=== PATIENT | female | born 1980 | race Two or more races ===

== ENCOUNTER 2016-05-03 23:32 | Emergency (ER) | payer SELFPAY ==
[~2016-05-03] VITALS: Ht 157.5 cm; Wt 99.8 kg
[2016-05-04] MEDS ORDERED: METOCLOPRAMIDE HCL 10 MG/2 ML VIAL IV ONE
[2016-05-04] MEDS ORDERED: IV NS 0.9% 1,000 ML BAG IV ONE
[2016-05-04] MEDS ORDERED: diphenhydrAMINE HCL 50 MG/ML VIAL IV ONE
[2016-05-04] MEDS ORDERED: diphenhydrAMINE HCL 50 MG/ML VIAL ONE (00:09)
[2016-05-04] MEDS ORDERED: METOCLOPRAMIDE HCL 10 MG/2 ML VIAL ONE (00:09)
[2016-05-04] MEDS ORDERED: IV SET PRIMARY 1 EA INFUS.SET MC ONE (00:09)
[2016-05-04] MEDS ORDERED: IV NS 0.9% 1,000 ML ONE (00:10)
[2016-05-04 00:27] LABS: BASOPHILS % (AUTO) 0.2 % (0.0-2.0); DIFF TOTAL % 100 %; HEMATOCRIT 42 % (33-45); HEMOGLOBIN 14.2 g/dL (11.5-14.8); LYMPHOCYTES # (AUTO) 0.8 /CMM (0.8-4.8); MEAN CORPUSCULAR HEMOGLOBIN 29 PG (26.0-33.0); MEAN CORPUSCULAR HGB CONC 34 g/dl (31.0-36.0); MEAN CORPUSCULAR VOLUME 84 fL (82-100); MONOCYTES # (AUTO) 0.1 /CMM (0.1-1.30); MONOCYTES % (AUTO) 1.1 % (2.0-12.0); NEUTROPHILS # (AUTO) 10.6 /CMM (1.8-8.9); NEUTROPHILS % (AUTO) 91.7 % (43.0-81.0); PLATELET COUNT (AUTO) 326 /CMM (150-450); RED BLOOD CELL COUNT(AUTO) 4.99 MIL/uL (4.0-5.2); WHITE BLOOD COUNT (AUTO) 11.6 K/uL (4.3-11.0)
[2016-05-04 00:39] LABS: CALCIUM, SERUM 8.6 mg/dL (8.5-10.1); CREATININE 0.9 mg/dL (0.6-1.3); POTASSIUM 3.6 mmol/L (3.5-5.1)
[2016-05-04 02:47] VITALS: BP 148/82
== END 2016-05-04 02:48 | disposition home or self-care (01) ==
LOC: ER 23:40
DX: G44.209 Tension-type headache, unspecified, not intractable (principal)
CPT/HCPCS: 36415; 70450; 80048; 84703; 85025; 96361; 96374; 96375; 99285; A4606; J1200; J2765; J7030; Z7610

== ENCOUNTER 2020-04-17 15:28 | Emergency (ER) | payer MEDICAID ==
[~2020-04-17] VITALS: Ht 165.1 cm; Wt 80.3 kg
[2020-04-17 15:53] VITALS: BP 169/100
--- NOTE | 2020-04-17 16:07 | NUR ---
dr mckeon at [facility] for eval.
--- NOTE | 2020-04-17 16:18 | NUR ---
pt to radiology for L sided rib xray.
== END 2020-04-17 17:10 | disposition home or self-care (01) ==
LOC: ER 15:34
DX: S20.212A Contusion of left front wall of thorax, initial encounter (principal); W01.0XXA Fall on same level from slipping, tripping and stumbling without subsequent striking against object, initial encounter; Y93.89 Activity, other specified; Y92.89 Other specified places as the place of occurrence of the external cause; Y99.0 Civilian activity done for income or pay
CPT/HCPCS: 71100-TC

== ENCOUNTER 2020-12-09 20:54 | Inpatient (IN) | payer MEDICAID ==
[~2020-12-09] VITALS: Ht 165.1 cm; Wt 82.3 kg
--- NOTE | 2020-12-09 21:00 | NUR ---
pt bibself c/o midsternal chest pain x today, dysuria and urgency x 8 months. pt aaox4 breathing evenly and unlabored. Upon assessment, pt is warm to the touch. pt attached to monitor and pox. MD at bedside for eval. Left ac 20g initiated and blood drawn and sent to the lab. Pt given call light within reach
[2020-12-09 21:25] LABS: BILIRUBIN,URINE Negative (NEGATIVE); COLOR,URINE YELLOW (YELLOW); LEUKOCYTE ESTERASE ,URINE Negative (NEGATIVE); NITRITE, URINE Negative (NEGATIVE); PH,URINE 6.5 (5.0-8.0); PROTEIN,URINE Negative (NEGATIVE); UGLUCOSE >=1000 mg/dL (NEGATIVE); UROBILINOGEN,URINE 0.2 EU/dL (0.2)
[2020-12-09] MEDS ORDERED: VANCOMYCIN 1 GM in IV D5W 250 ML IV ONE (21:30)
[2020-12-09] MEDS ORDERED: CEFEPIME 1 GM in IV D5W 50 ML IV ONE (21:30)
[2020-12-09] MEDS ORDERED: ACETAMINOPHEN 325 MG TABLET PO ONE (21:30)
[2020-12-09] MEDS ORDERED: IV NS 0.9% 1,000 ML BAG IV ONE (21:30)
[2020-12-09] MEDS ORDERED: CEFEPIME 1 GM VIAL ONE (21:32)
[2020-12-09] MEDS ORDERED: VANCOMYCIN 1 GM VIAL ONE (21:33)
--- NOTE | 2020-12-09 21:42 | NUR ---
covid swab sent to lab
[2020-12-09 21:47] LABS: BACTERIA,URINE 1+ /HPF (None Seen); SQUAMOUS EPITHELIAL CELL,UR Few /HPF (None Seen)
--- NOTE | 2020-12-09 21:58 | NUR ---
xray at bedside
[2020-12-09 22:28] LABS: ALBUMIN 3.5 g/dL (3.4-5.0); ALKALINE PHOSPHATASE 124 U/L (46-116); BILIRUBIN,DIRECT 0.1 mg/dL (0.0-0.2); BILIRUBIN,TOTAL 0.6 mg/dL (0.2-1.0); CALCIUM, SERUM 8.9 mg/dL (8.5-10.1); CARBON DIOXIDE 17 mmol/L (21-32); CHLORIDE 98 mmol/L (98-107); CREATININE 0.9 mg/dL (0.6-1.3); POTASSIUM 3.4 mmol/L (3.5-5.1); TOTAL PROTEIN, SERUM 7.9 g/dL (6.4-8.2); UREA NITROGEN, BLOOD 17 mg/dL (7-18)
[2020-12-09 22:43] LABS: GLUCOSE 414 mg/dL (74-106)
--- NOTE | 2020-12-09 22:56 | NUR ---
rt at bedside
[2020-12-09] MEDS ORDERED: IV NS 0.9% 1,000 ML IV ONE ×2 (23:00)
[2020-12-09] MEDS ORDERED: POTASSIUM CHLORIDE 20 MEQ TAB.PRT.SR PO ONE ×2 (23:00→23:02)
[2020-12-09] MEDS ORDERED: Magnesium 1 GM/2 ML VIAL IV ONE (23:00)
[2020-12-09] MEDS ORDERED: Magnesium 1 GM/2 ML VIAL ONE (23:02)
[2020-12-09 23:04] LABS: ALANINE AMINOTRANSFERASE 41 U/L (12-78)
[2020-12-09] MEDS ORDERED: Magnesium 1GM/D5W 100ML PREMIX 100 ML IV ONE (23:05)
[2020-12-09 23:06] LABS: ASPARTATE AMINOTRANSFERASE 26 U/L (15-37); SODIUM SERUM 135 mmol/L (136-145)
[2020-12-09 23:15] LABS: ABG BASE EXCESS -1.9 mmol/L; ABG OXYGEN SATURATION 95.5 % (92.0-98.5); ABG PH 7.461 (7.350-7.450); ABG PO2 77.5 mmHg (75.0-100.0); AaDO2 36.3 mmHg; COHb 0.4 % (0.5-1.5); MetHb 0.4 % (0.0-1.5); O2Hb 94.7 % (94.0-97.0); SITE, ABG Left Radial; VENT MODE, BG ROOM AIR
--- NOTE | 2020-12-09 23:29 | NUR ---
lab at bedside
[2020-12-09 23:31] LABS: HEMATOCRIT 43 % (33-45); HEMOGLOBIN 15.8 g/dL (11.5-14.8); MEAN CORPUSCULAR HGB CONC 37 g/dl (31.0-36.0); MEAN CORPUSCULAR VOLUME 84 fL (82-100); NEUTROPHILS % (AUTO) 91.6 % (43.0-81.0); PLATELET COUNT (AUTO) 213 K/uL (150-450); RED BLOOD CELL COUNT(AUTO) 5.16 MIL/uL (4.0-5.2); WHITE BLOOD COUNT (AUTO) 11.7 K/uL (4.3-11.0)
[2020-12-09 23:32] LABS: BASOPHILS % (AUTO) 0.4 % (0.0-2.0); EOSINOPHILS % (AUTO) 0.2 % (0.0-6.0); LYMPHOCYTES % (AUTO) 6.6 % (20.0-44.0); MONOCYTES % (AUTO) 1.2 % (2.0-12.0)
--- NOTE | 2020-12-10 00:16 | NUR ---
paged Dr Baron per dr Burch's order
[2020-12-10] MEDS ORDERED: DEXTROSE 50%-WATER 50 ML DISP.SYRIN IV PRN (00:30)
[2020-12-10] MEDS ORDERED: MAGNESIUM HYDROXIDE 30 ML UDC PO PRN (00:30)
[2020-12-10] MEDS: AZITHROMYCIN 500 MG in IV D5W 250 ML IV SCH (00:30)
[2020-12-10] MEDS ORDERED: MAG HYDROX/AL HYDROX/SIMETH 30 ML UDC PO PRN (00:30)
[2020-12-10] MEDS ORDERED: ONDANSETRON HCL/PF 4 MG/2 ML VIAL IVP PRN (00:30)
[2020-12-10] MEDS ORDERED: ZOLPIDEM TARTRATE 5 MG TABLET PO PRN (00:30)
[2020-12-10] MEDS: CEFTRIAXONE 1 G in IV D5W 50 ML IV SCH (00:30)
[2020-12-10] MEDS ORDERED: Z GUARD REMEDY 2 OZ OINT TP PRN (00:30)
--- NOTE | 2020-12-10 00:40 | NUR ---
called house sup for tele bed
--- NOTE | 2020-12-10 01:15 | NUR ---
PT WILL BE GOING TO 304-2
--- NOTE | 2020-12-10 01:37 | NUR ---
gave report to rosy lu for malia
--- NOTE | 2020-12-10 02:00 | NUR ---
PT WAS TRANSFERRED TO 304 UNDER ACLS
[2020-12-10 02:10] VITALS: BP 135/79
--- NOTE | 2020-12-10 02:10 | NUR ---
NETBACKUP ADMINISTRATORBUSINESS UNIT CONTROLLER PATIENT BROUGHT BY ER AT THIS TIME [facility]. A/OX4. AMBULATORY. NO S/S OF APPARENT DISTRESS. DENIES PAIN AT THIS TIME. SKIN INTACT. TELE BOX IN PLACE READING SINUS TACHY. ID BAND IN PLACE. BELONGINGS DONE. V/S FOLLOWS: BP- 135/79, HR-110, RR-20, T- 98.0, 97% O2 SATURATION ON ROOM AIR. PT. IS 181.[address] AWAITING ORDERS AND WILL FOLLOW THROUGH THEM. WILL CONT. TO MONITOR PATIENT.
[2020-12-10] MEDS: IV NS 0.9% 1,000 ML IV PRN ×2 (02:27→14:35)
--- NOTE | 2020-12-10 02:30 | NUR ---
ms rn note faxed Maia order from ER of azithromycin. awaiting.
[2020-12-10] MEDS ORDERED: CEFTRIAXONE 1 G VIAL ONE (02:49)
[2020-12-10] MEDS ORDERED: AZITHROMYCIN 500 MG VIAL ONE (03:00)
[2020-12-10 03:13] VITALS: BP 135/79
--- NOTE | 2020-12-10 03:31 | NUR ---
ms rn note conjugated 500 mg of azithromycin vial in 250 D5W. administered at this time.
[2020-12-10] MEDS: BLOOD SUGAR DIAGNOSTIC 1 EACH STRIP IN SCH ×4 (06:22→22:41)
[2020-12-10] MEDS: INSULIN REGULAR, HUMAN 100 UNIT/ML 3 ML VIAL SQ PRN ×4 (06:38→22:44)
--- NOTE | 2020-12-10 06:40 | NUR ---
telephone station repairer notes patient blood sugar in the am is 335. given 8 units of regular insulin per sliding scale.
--- NOTE | 2020-12-10 06:43 | NUR ---
telephone station installer closing patient sitting in bed. a/ox4. patient has no apparent distress, tolerating room air. no c/o pain at this time. IV NS running @100ml/hr. patient ambulatory, able to make needs known. all needs attended, all sched meds administered. safety in place. will endorse care to morning shift rn for continuation of care.
[2020-12-10] MEDS: PANTOPRAZOLE 40 MG TABLET.DR PO SCH (07:38)
--- NOTE | 2020-12-10 07:43 | NUR ---
COTTAGE MASTER OPENING NOTES RECEIVED PATIENT IN BED, AWAKE, A/OX4. PATIENT ON ROOM AIR; BREATHING EVEN AND UNLABORED AT THIS TIME. TELE MONITOR WITH A CURRENT READING OF NSR 87 BPM. COMPLAINING OF LIGHT HEADACHE. IV ACCESS ON LAC G # 20 RUNNING NS @ 100 MLS/HR. SAFETY PRECAUTIONS IN PLACE; BED IN LOW POSITION AND LOCKED, RAILS UP X2, CALL LIGHT WITHIN REACH. WILL CONTINUE TO MONITOR PATIENT.
[2020-12-10 08:10] VITALS: BP 123/79
[2020-12-10 12:00] VITALS: BP 101/64
[2020-12-10] MEDS: ACETAMINOPHEN 325 MG TABLET PO PRN (16:17)
--- NOTE | 2020-12-10 16:19 | NUR ---
DAY CARE ATTENDANT NOTES PATIENT NOTED WITH SLIGHT FEVER OF 99.8. PRN TYLENOL ADMINISTERED.
[2020-12-10 16:23] VITALS: BP 152/88
--- NOTE | 2020-12-10 18:43 | NUR ---
HOME CARE ASSISTANT CLOSING NOTES PATIENT REMAINS IN BED, AWAKE, A/OX4. PATIENT ON ROOM AIR; BREATHING EVEN AND UNLABORED DURING THE DAY. TELE MONITOR WITH A CURRENT READING OF NSR. DENIES ANY PAIN. IV ACCESS ON LAC G # 20 RUNNING NS @ 100 MLS/HR. ALL NEEDS ATTENDED DURING THE DAY. SAFETY PRECAUTIONS IN PLACE; BED IN LOW POSITION AND LOCKED, RAILS UP X2, CALL LIGHT WITHIN REACH. WILL ENDORSE TO PUBLICATIONS EDITOR NURSE.
--- NOTE | 2020-12-10 19:30 | NUR ---
MSRN FULLY AWAKE. DENISES ANY DISCOMFORTS. PRESENT IVF INFUSING WELL. PLAN OF CARE AND MEDICATION REGIMEN DISCUSSED WITH PATIENT WELL UNDERSTOOD. CLOSELY WATCHED.
[2020-12-10 20:23] VITALS: BP 126/73
--- NOTE | 2020-12-10 22:15 | NUR ---
TELERN BS 264, COVERED WITH 6 UNITS REGULAR INSULIN SQ. SNACKS PROVIDED. NO PAIN OF THIS TIME. ST ON THE MONITOR. SAFETY PRECAUTIONS EMPHASIZED, WELL UNDERSTOOD. ALL NEEDS ATTENDED.
[2020-12-11] VITALS: BP 143/81
[2020-12-11] MEDS: IV NS 0.9% 1,000 ML IV PRN (00:33)
[2020-12-11] MEDS: CEFTRIAXONE 1 G in IV D5W 50 ML IV SCH (00:34)
[2020-12-11] MEDS: AZITHROMYCIN 500 MG in IV D5W 250 ML IV SCH (01:01)
[2020-12-11 04:00] VITALS: BP 91/58
[2020-12-11 06:16] LABS: BASOPHILS % (AUTO) 0.7 % (0.0-2.0); EOSINOPHILS % (AUTO) 1.1 % (0.0-6.0); HEMATOCRIT 40 % (33-45); HEMOGLOBIN 13.9 g/dL (11.5-14.8); LYMPHOCYTES # (AUTO) 1.6 K/uL (0.8-4.8); LYMPHOCYTES % (AUTO) 22.6 % (20.0-44.0); MEAN CORPUSCULAR HGB CONC 35 g/dl (31.0-36.0); MEAN CORPUSCULAR VOLUME 83 fL (82-100); MONOCYTES # (AUTO) 0.4 K/uL (0.1-1.30); MONOCYTES % (AUTO) 5.9 % (2.0-12.0); NEUTROPHILS # (AUTO) 4.9 K/uL (1.8-8.9); NEUTROPHILS % (AUTO) 69.7 % (43.0-81.0); PLATELET COUNT (AUTO) 160 K/uL (150-450); RED BLOOD CELL COUNT(AUTO) 4.77 MIL/uL (4.0-5.2); WHITE BLOOD COUNT (AUTO) 7.1 K/uL (4.3-11.0)
[2020-12-11 06:55] LABS: CALCIUM, SERUM 8.8 mg/dL (8.5-10.1); CREATININE 0.5 mg/dL (0.6-1.3); MAGNESIUM 1.8 mg/dL (1.8-2.4); PHOSPHORUS 2.6 mg/dL (2.5-4.9); POTASSIUM 3.8 mmol/L (3.5-5.1)
[2020-12-11] MEDS: INSULIN REGULAR, HUMAN 100 UNIT/ML 3 ML VIAL SQ PRN ×2 (06:59→11:37)
[2020-12-11] MEDS: BLOOD SUGAR DIAGNOSTIC 1 EACH STRIP IN SCH ×2 (07:00→11:34)
--- NOTE | 2020-12-11 07:00 | NUR ---
msrn bs 289 covered with 6 units regular insulin sq.
[2020-12-11] MEDS: PANTOPRAZOLE 40 MG TABLET.DR PO SCH (07:10)
[2020-12-11 07:16] LABS: THYROID STIMULATING HORMONE 1.59 uIU/mL (0.358-3.74)
--- NOTE | 2020-12-11 07:16 | NUR ---
GUN CLUB MANAGER CLOSING NOTES RECEIVED PATIENT IN BED, ASLEEP, AWAKEN EASILY. PATIENT ON ROOM AIR; BREATHING EVEN AND UNLABORED AT THIS TIME. TELE MONITOR WITH A CURRENT READING OF SR 87 BPM. NO COMPLAINS OF PAIN. IV ACCESS ON LAC G # 20 RUNNING NS @ 100 MLS/HR. SAFETY PRECAUTIONS IN PLACE; BED IN LOW POSITION AND LOCKED, RAILS UP X2, CALL LIGHT WITHIN REACH. WILL CONTINUE TO MONITOR PATIENT. Addendum: 12/11/20 at 0719 by DANITA BARROW RN GUN CLUB MANAGER OPENING NOTES RECEIVED PATIENT IN BED, AWAKE, A/OX4. PATIENT ON ROOM AIR; BREATHING EVEN AND UNLABORED AT THIS TIME. TELE MONITOR WITH A CURRENT READING OF NSR 70 BPM. NO COMPLAINS OF PAIN. IV ACCESS ON LAC G # 20 RUNNING NS @ 100 MLS/HR. SAFETY PRECAUTIONS IN PLACE; BED IN LOW POSITION AND LOCKED, RAILS UP X2, CALL LIGHT WITHIN REACH. WILL CONTINUE TO MONITOR PATIENT.
[2020-12-11 08:00] VITALS: BP 128/65
[2020-12-11] MEDS: ACETAMINOPHEN 325 MG TABLET PO PRN (11:24)
--- NOTE | 2020-12-11 15:28 | NUR ---
FRESCO ARTIST NOTES: PATIENT DISCHARGED HOME IN CLINICALLY STABLE CONDITION. PATIENT A/O X4 AND ABLE TO MAKE NEEDS KNOWN. ALL DISCHARGE DOCUMENTATION READY AND SIGNED BY PATIENT. TEACHING REGARDING PHYSICIAN INSTRUCTIONS AND PRESCRIBED MEDICATIONS PROVIDED; PATIENT VERBALIZED UNDERSTANDING. CLOTHES AND BELONGINGS ACCOUNTED FOR AND FORM SIGNED WELL. SKIN INTACT. PATIENT LEFT THE FLOOR ACCOMPANIED BY MANAGER COSTING AND FAMILY AT 1530 AND LEFT THE HOSPITAL IN A PRIVATE CAR.
[2020-12-11] MEDS ORDERED: ANESTHESIA TRAY IN PYXIS 1 EA TRAY MC ONE (18:06)
== END 2020-12-11 15:30 | disposition home or self-care (01) | DRG 420 ==
LOC: ER 20:56 → TELE 12-10 01:23
PROVIDERS: ADMIT Nurse Practitioner Acute Care; ATTEND Internal Medicine
DX: E11.65 Type 2 diabetes mellitus with hyperglycemia (principal); E87.2 Acidosis; E86.0 Dehydration; E87.1 Hypo-osmolality and hyponatremia; D72.829 Elevated white blood cell count, unspecified; E66.9 Obesity, unspecified; E87.6 Hypokalemia; I10 Essential (primary) hypertension; Z20.822 Contact with and (suspected) exposure to COVID-19; Z91.14 Patient's other noncompliance with medication regimen; Z68.30 Body mass index [BMI] 30.0-30.9, adult
CPT/HCPCS: 36415; 36600; 71045-TC; 80048-TC; 80061-TC; 80076-TC; 81001; 82962-TC; 83605-TC; 83735-TC; 84100-TC; 84443-TC; 84484-TC; 85025-TC; 85730-TC; 87040-TC; 87081-TC; 87086-TC; 87186-TC; C9803; G0378; J0456; J0692; J0696; J1815; J3370; J3475; J7030; J7040; J7060

== ENCOUNTER 2022-03-17 10:16 | Emergency (ER) | payer MEDICAID ==
[~2022-03-17] VITALS: Ht 165.1 cm; Wt 86.2 kg
[2022-03-17] MEDS ORDERED: KETOROLAC TROMETHAMINE INJ 30 MG/ML VIAL IV ONE (11:00)
[2022-03-17] MEDS ORDERED: KETOROLAC TROMETHAMINE 15 MG/ML VIAL ONE (11:20)
--- NOTE | 2022-03-17 11:29 | NUR ---
URINE SAMPLE COLLECTED AND SENT TO LAB
--- NOTE | 2022-03-17 11:30 | NUR ---
IV LINE ESTABLISHED ON RAC #20.
--- NOTE | 2022-03-17 11:36 | NUR ---
ACCUCHECK 329MG/DL, DR JARA MADE AWARE
[2022-03-17 11:39] LABS: BASOPHILS # (AUTO) 0.1 K/uL (0.0-0.2); BASOPHILS % (AUTO) 0.7 % (0.0-2.0); EOSINOPHILS % (AUTO) 0.3 % (0.0-6.0); HEMATOCRIT 42 % (33-45); LYMPHOCYTES # (AUTO) 0.7 K/uL (0.8-4.8); MEAN CORPUSCULAR HGB CONC 34 g/dl (31.0-36.0); MEAN CORPUSCULAR VOLUME 85 fL (82-100); MONOCYTES # (AUTO) 0.6 K/uL (0.1-1.30); MONOCYTES % (AUTO) 5.1 % (2.0-12.0); NEUTROPHILS # (AUTO) 10.4 K/uL (1.8-8.9); NEUTROPHILS % (AUTO) 87.9 % (43.0-81.0); PLATELET COUNT (AUTO) 191 K/uL (150-450); RED BLOOD CELL COUNT(AUTO) 4.94 MIL/uL (4.0-5.2); WHITE BLOOD COUNT (AUTO) 11.8 K/uL (4.3-11.0)
[2022-03-17 11:55] LABS: ALBUMIN 2.9 g/dL (3.4-5.0); BILIRUBIN,DIRECT 0.2 mg/dL (0.0-0.2); BILIRUBIN,TOTAL 0.8 mg/dL (0.2-1.0); CALCIUM, SERUM 8.6 mg/dL (8.5-10.1); CREATININE 0.7 mg/dL (0.6-1.3); POTASSIUM 3.7 mmol/L (3.5-5.1); TOTAL PROTEIN, SERUM 7.1 g/dL (6.4-8.2)
[2022-03-17 12:04] LABS: BILIRUBIN,URINE NEGATIVE (NEGATIVE); COLOR,URINE YELLOW (YELLOW); LEUKOCYTE ESTERASE ,URINE 1+ (NEGATIVE); NITRITE, URINE POSITIVE (NEGATIVE); PROTEIN,URINE 1+ mg/dl (NEGATIVE); UGLUCOSE 3+ mg/dL (NEGATIVE); UROBILINOGEN,URINE 0.2 EU/dL (0.2)
[2022-03-17 12:18] LABS: BACTERIA,URINE Many /HPF (None Seen); SQUAMOUS EPITHELIAL CELL,UR Few /HPF (None Seen); WBC,URINE 21-50 /HPF (0-3)
[2022-03-17] MEDS ORDERED: CIPR-262 PO (12:18)
[2022-03-17] MEDS ORDERED: IBUP-1957 PO (12:18)
[2022-03-17] MEDS ORDERED: METF-881 PO (12:18)
[2022-03-17] MEDS ORDERED: CEFTRIAXONE 1GM BAG (ER ONLY) 50 ML IV ONE (12:19)
[2022-03-17] MEDS ORDERED: CEFTRIAXONE 1GM BAG (ER ONLY) 1 GM/50 ML PIGGYBACK IV ONE (12:30)
--- NOTE | 2022-03-17 12:54 | NUR ---
IV removed. Catheter intact and site benign. Pressure and 4x4 applied to site. No bleeding noted.
--- NOTE | 2022-03-17 12:56 | NUR ---
Patient discharged to home in stable condition. Written and verbal after care instructions given. Patient verbalizes understanding of instruction.
[2022-03-17 12:58] VITALS: BP 123/76
== END 2022-03-17 12:59 | disposition home or self-care (01) ==
LOC: ER 10:16
DX: N12 Tubulo-interstitial nephritis, not specified as acute or chronic (principal); E11.65 Type 2 diabetes mellitus with hyperglycemia; I10 Essential (primary) hypertension; Z79.84 Long term (current) use of oral hypoglycemic drugs; Z79.899 Other long term (current) drug therapy
CPT/HCPCS: 99284; 96365; 96375; 85025; 80048; 87086; 83690; 80076; 84703; 81001; 36415; 82962; J0696; J1885

== ENCOUNTER 2024-01-14 23:10 | Emergency (ER) | payer MEDICAID, OTHER ==
[~2024-01-14] VITALS: Ht 160 cm; Wt 65.8 kg
[~2024-01-14 23:10] MED LIST: CIPR-262 PO; IBUP-1957 PO; METF-881 PO
[2024-01-15] MEDS ORDERED: METOCLOPRAMIDE HCL 10 MG/2 ML VIAL ONE (00:52)
[2024-01-15] MEDS ORDERED: SUMATRIPTAN SUCCINATE 6 MG/0.5 ML VIAL SQ ONE (00:52)
[2024-01-15] MEDS: METOCLOPRAMIDE HCL 10 MG/2 ML VIAL IV ONE (00:53)
[2024-01-15] MEDS: IV NS 0.9% 1,000 ML BAG IV ONE (00:53)
[2024-01-15] MEDS: SUMATRIPTAN SUCCINATE 6 MG/0.5 ML VIAL SQ ONE (00:53)
[2024-01-15 00:57] LABS: BASOPHILS % (AUTO) 0.4 % (0.0-2.0); EOSINOPHILS # (AUTO) 0.1 K/uL (0.0-0.7); EOSINOPHILS % (AUTO) 0.7 % (0.0-6.0); HEMATOCRIT 44 % (33-45); LYMPHOCYTES # (AUTO) 2.1 K/uL (0.8-4.8); LYMPHOCYTES % (AUTO) 25.9 % (20.0-44.0); MEAN CORPUSCULAR HEMOGLOBIN 29 PG (26.0-33.0); MEAN CORPUSCULAR HGB CONC 34 g/dl (31.0-36.0); MEAN CORPUSCULAR VOLUME 85 fL (82-100); MONOCYTES # (AUTO) 0.5 K/uL (0.1-1.30); MONOCYTES % (AUTO) 6.4 % (2.0-12.0); NEUTROPHILS # (AUTO) 5.4 K/uL (1.8-8.9); NEUTROPHILS % (AUTO) 66.6 % (43.0-81.0); PLATELET COUNT (AUTO) 292 K/uL (150-450); RED BLOOD CELL COUNT(AUTO) 5.23 MIL/uL (4.0-5.2); RED CELL DISTRIBUTION WIDTH 13.2 % (11.5-15.0); WHITE BLOOD COUNT (AUTO) 8.2 K/uL (4.3-11.0)
[2024-01-15 01:12] LABS: ALANINE AMINOTRANSFERASE 12 U/L (12-78); ALBUMIN 4.1 g/dL (3.4-5.0); ALKALINE PHOSPHATASE 66 U/L (46-116); ASPARTATE AMINOTRANSFERASE 10 U/L (15-37); BILIRUBIN,DIRECT 0.1 mg/dL (0.0-0.2); BILIRUBIN,TOTAL 0.3 mg/dL (0.2-1.0); CALCIUM, SERUM 9.9 mg/dL (8.5-10.1); CARBON DIOXIDE 28 mmol/L (21-32); CHLORIDE 104 mmol/L (98-107); CREATININE 0.7 mg/dL (0.6-1.3); GLUCOSE 119 mg/dL (74-106); POTASSIUM 3.9 mmol/L (3.5-5.1); SODIUM SERUM 141 mmol/L (136-145); TOTAL PROTEIN, SERUM 8.2 g/dL (6.4-8.2); UREA NITROGEN, BLOOD 18 mg/dL (7-18)
[2024-01-15 01:56] LABS: INR 1.03 (0.91-1.10); PARTIAL THROMBOPLASTIN TIME 26.2 SEC (24.3-34.3); PROTHROMBIN TIME 10.9 SECS (9.2-11.1)
[2024-01-15 02:07] VITALS: BP 110/79; TEMP 98.6; O2SAT 98
== END 2024-01-15 02:27 | disposition home or self-care (01) ==
LOC: ER 23:13
DX: R51.9 Headache, unspecified (principal); M62.838 Other muscle spasm; I10 Essential (primary) hypertension; E11.9 Type 2 diabetes mellitus without complications; F17.200 Nicotine dependence, unspecified, uncomplicated; Z79.84 Long term (current) use of oral hypoglycemic drugs; Z79.1 Long term (current) use of non-steroidal anti-inflammatories (NSAID)
CPT/HCPCS: 99285; 96374; 70450; 71045; 96361; 96372; 93005; 85025; 80048; 80076; 36415; 84484; 85730; J3030; J2765; J7030

== ENCOUNTER 2024-08-04 09:09 | Emergency (ER) | payer MEDICAID ==
[~2024-08-04] VITALS: Ht 160 cm; Wt 66.2 kg
[2024-08-04 09:30] VITALS: TEMP 98.8
[2024-08-04 09:55] LABS: BASOPHILS # (AUTO) 0.1 K/uL (0.0-0.2); BASOPHILS % (AUTO) 0.9 % (0.0-2.0); EOSINOPHILS # (AUTO) 0.1 K/uL (0.0-0.7); EOSINOPHILS % (AUTO) 1.1 % (0.0-6.0); HEMATOCRIT 40 % (33-45); HEMOGLOBIN 13.6 g/dL (11.5-14.8); LYMPHOCYTES # (AUTO) 2.5 K/uL (0.8-4.8); LYMPHOCYTES % (AUTO) 35.8 % (20.0-44.0); MEAN CORPUSCULAR HEMOGLOBIN 29 PG (26.0-33.0); MEAN CORPUSCULAR HGB CONC 34 g/dl (31.0-36.0); MEAN CORPUSCULAR VOLUME 85 fL (82-100); MONOCYTES # (AUTO) 0.5 K/uL (0.1-1.30); MONOCYTES % (AUTO) 7.1 % (2.0-12.0); NEUTROPHILS # (AUTO) 3.8 K/uL (1.8-8.9); NEUTROPHILS % (AUTO) 55.1 % (43.0-81.0); PLATELET COUNT (AUTO) 311 K/uL (150-450); RED BLOOD CELL COUNT(AUTO) 4.68 MIL/uL (4.0-5.2); RED CELL DISTRIBUTION WIDTH 13.1 % (11.5-15.0)
[2024-08-04 10:03] LABS: CALCIUM, SERUM 9.3 mg/dL (8.5-10.1); CREATININE 0.7 mg/dL (0.6-1.3); POTASSIUM 4.1 mmol/L (3.5-5.1)
[2024-08-04] MEDS ORDERED: IOHEXOL-350 100 ML VIAL IV ONE (12:30)
[2024-08-04] MEDS ORDERED: IV NS 0.9% 250 ML IV ONE (12:30)
[2024-08-04] MEDS ORDERED: CT SWABBABLE VALVE TRANS SET 1 EA INFUS.SET MC ONE (12:30)
[2024-08-04 14:58] VITALS: BP 110/75; O2SAT 99
== END 2024-08-04 14:46 | disposition home or self-care (01) ==
LOC: ER 09:14
DX: R07.89 Other chest pain (principal); R05.9 Cough, unspecified; I10 Essential (primary) hypertension; E11.9 Type 2 diabetes mellitus without complications; F17.200 Nicotine dependence, unspecified, uncomplicated; Z79.1 Long term (current) use of non-steroidal anti-inflammatories (NSAID); Z79.84 Long term (current) use of oral hypoglycemic drugs; Z79.899 Other long term (current) drug therapy
CPT/HCPCS: 99285; 75574; 71045; 85025; 80048; 36415; 84484; 93005; J7050; Q9967